=== PATIENT | male | born 1930 | race Caucasian/White ===

== ENCOUNTER 2017-05-18 00:53 | Inpatient (IN) ==
[2017-05-18] MEDS ORDERED: TYLENOL PO PRN (03:32)
[2017-05-18] MEDS ORDERED: ZOFRAN IV PRN (03:32)
[2017-05-18] MEDS: NS 1,000 ML IV SCH (04:33)
[2017-05-18] MEDS: ROCEPHIN 1 GM/NS 1 GM/50 ML IVPB IV SCH (04:34)
[2017-05-18 05:01] LABS: MANUAL DIFF NEEDED? NO
[2017-05-18 05:05] LABS: EOS# 0.05 X1000 (0.0-0.7); HEMATOCRIT 35.6 % (42.0-52.0); HEMOGLOBIN 12.4 g/dL (14.0-18.0); LYMPH# 0.42 X1000 (1.2-3.4); LYMPH% 8.4 % (20.5-51.1); MCH 31.6 PG (27-31); MCHC 34.8 g/dL (33-37); MCV 90.6 FL (81-99); MONO# 0.41 X1000 (0.11-0.59); MONO% 8.2 % (1.7-9.3); NEUT% 82.4 % (42.2-75.2); PLT 159 X1000 (130-400); RBC 3.93 XMIL (4.7-6.1)
[2017-05-18 05:15] LABS: INR 1.96; PROTIME 21.5 Seconds (9.2-11.7)
[2017-05-18 05:19] LABS: HEMOGLOBIN A1C 5.1 % (4.8-6.0)
[2017-05-18 05:28] LABS: AGAP 13; ALBUMIN 3.9 g/dL (3.5-5.0); ALKALINE PHOSPHATASE 101 U/L (32-122); BUN 12 mg/dL (8-22); CALCIUM 9.4 mg/dL (8.8-10.2); CHLORIDE 100 mmol/L (98-107); COSMO 272; GOT 13 U/L (10-34); GPT 7 U/L (10-44); SODIUM 136 mmol/L (136-145); TCO2 23 mmol/L (25-35); TOTAL PROTEIN 6.3 g/dL (6.3-8.3)
[2017-05-18] MEDS: DOXYCYCLINE 100 MG in NS 250 ML IV SCH ×2 (05:37→16:56)
[2017-05-18] MEDS: HUMALOG SUBQ SCH ×4 (06:59→21:07)
--- NOTE | 2017-05-18 09:14 | Diag Imaging Result Doc PS360 ---
CHEST-2 VIEWS - 05/18/2017 INDICATION: sent here for pneumonia TECHNIQUE: COMPARISON: None FINDINGS: Lung volumes are low with some patchy atelectasis in the bases. No suspicious infiltrates. Heart size and pulmonary vascularity is normal. No pneumothorax or pleural effusion. No compression fractures in the spine. IMPRESSION: Low lung volumes with patchy atelectasis in the lung bases but no definite acute disease. Electronically signed by Song Chapa 05/18/2017 9:11 AM
[2017-05-18] MEDS: CASODEX PO SCH (10:13)
[2017-05-18] MEDS: LIPITOR PO SCH (10:14)
[2017-05-18] MEDS: PATIENT'S OWN MED PO SCH (10:14)
[2017-05-18] MEDS: PROTONIX PO SCH (10:15)
[2017-05-18] MEDS: PROSCAR PO SCH (10:15)
[2017-05-18] MEDS: ZYRTEC PO SCH (10:15)
--- NOTE | 2017-05-18 12:31 | HISTORY AND PHYSICAL ---
FAMILY CARE PROVIDER: Dr. Gisselle Lloyd. PASTE THINNER: Dr. Jones. CHIEF COMPLAINT: Weakness over the past 5-7 days. HISTORY OF PRESENT ILLNESS: Mr. Cesar is an 87-year-old male who is known to have early stage dementia, hypertension, hyperlipidemia, apparent early stage prostate cancer. He has had TIAs and he is on chronic Coumadin anticoagulation according to the son related to the ministrokes. He presented around 10 p.m. last night to [facility] and was worked up. Apparently, the ER provider noted a retrocardiac infiltrate on a portable chest x-ray. He was transferred to [facility] for further treatment. PAST MEDICAL HISTORY: See HPI. PREVIOUS SURGICAL HISTORY: 1. Appendectomy. 2. Tonsillectomy. SOCIAL HISTORY: No tobacco, alcohol or illicit drug use or abuse. Lives at home with his son. [id number] just recently on the of this month. FAMILY HISTORY: Son states there are no chronic health issues in himself or his father's parents he is aware of ALLERGIES: No known drug allergies. HOME MEDICATIONS: 1. Coumadin 3 mg p.o. at bedtime Saturday, Saturday, Saturday. Coumadin 4 mg Saturday, Saturday, , Saturday at bedtime. 2. Zyrtec 1 tablet p.o. daily. 3. Finasteride 5 mg p.o. daily, 4. Bicalutamide 50 mg p.o. daily. 5. Bactrim DS 1 p.o. b.i.d. 6. Lipitor 10 mg p.o. daily. 7. Vitamin K 100 mcg p.o. daily. 8. Lopid 600 mg p.o. b.i.d. 9. Protonix 40 mg p.o. daily. 10. Naproxen 375 mg p.o. b.i.d. p.r.n. REVIEW OF SYSTEMS: Fourteen point review of systems conducted with the patient and son. He denies complaint other than mild weakness, a recent fall 7 days ago related to tripping over a rug. No loss of consciousness. A skin abrasion or skin tear to his left upper arm that is roughly 7 cm in length and 3-4 cm in width, and a mild cough. Other pertinent positives for admission are listed above in the HPI. All other systems reviewed and found to be negative. PHYSICAL EXAMINATION: VITAL SIGNS: Temperature 99.1 degrees, pulse 102, respirations 20, blood pressure 144/84, oxygen saturation 97% on room air. GENERAL: Very hard of hearing 87-year-old male denies complaint at this time. Son at bedside. He is oriented to person, disoriented to time. He is aware that he is in the hospital, is unsure which hospital but is in no acute distress. HEENT: Head is atraumatic, normocephalic. Pupils equal, round, reactive to light. Extraocular eye movement intact. Sclerae is anicteric. Conjunctivae is pink. Oral mucosa is moist. NECK: Supple. No JVD. No thyromegaly. Trachea is midline. CARDIAC: S1-S2 appreciated. No murmurs, gallops, rubs. Regular rhythm. LUNGS: Clear to auscultation bilaterally. No rhonchi, wheezes, rales. Symmetrical rise and fall with respirations. ABDOMEN: Soft, nondistended, nontender. Bowel sounds present in all 4 quadrants. Normoactive. No pulsatile mass. No organomegaly. EXTREMITIES: No clubbing, cyanosis, or edema. 2+ pedal pulses. NEUROLOGICAL: Awake and alert, oriented to person. He is aware he is in the hospital, does not know which hospital, disoriented to time. He is very hard of hearing. Otherwise, cranial nerves 2-12 appear to be grossly intact. SKIN: Warm and dry. A 3-4 cm in width x roughly 7 cm long skin tear noted to the left upper extremity with an area of erythema just below it. GENITOURINARY: The patient voids, otherwise deferred. DIAGNOSTIC DATA: All repeat laboratory data is pending at this time since he has been transferred as well as imaging. LABORATORY RESULTS: From [facility]: WBC 5.8, hemoglobin 12.6, hematocrit 35.9, platelet count 169,000. Sodium 135, potassium 4.1, chloride 97, carbon dioxide 22, BUN 12, creatinine 1.2, glucose 122. Urine was unremarkable. Chest x-ray was interpreted as a retrocardiac infiltrate. EKG, in normal sinus rhythm. ASSESSMENT: 1. Acute bacterial pneumonia, community acquired. We will treat with doxycycline IV q.12 hours 100 mg and Rocephin 1 g IV q.24 hours. We will re-evaluate a two-view chest x-ray when available. 2. Left upper extremity skin tear with possible cellulitis. Please see antibiotic selection above. We will consult Wound Care. 3. Hyperlipidemia. Continue statin. 4. Diabetes mellitus type 2. Hold oral antihyperglycemic. Check hemoglobin A1c. Start sliding scale insulin with fingerstick blood sugar. 5. Early stages of dementia, aware. 6. Chronic Coumadin anticoagulation presumably for a history of TIAs but unsure. Patient has both Coumadin and vitamin K ordered. No INR on was available from previous laboratory data. We will order both. This is pending. INR will need to be re-evaluated in the a.m. The patient had a CT of his head at the other facility which was negative for bleed. Further recommendations per patient clinical course. Dictated by JOHNATHON Martin for Jaspreet Tan MD cc: MD Barney Belle MD Harley C. Bailey, CRNP Lloyd James, MD
[2017-05-18] MEDS: COUMADIN PO SCH (20:03)
[2017-05-19] MEDS: ROCEPHIN 1 GM/NS 1 GM/50 ML IVPB IV SCH (04:08)
[2017-05-19] MEDS: DOXYCYCLINE 100 MG in NS 250 ML IV SCH ×2 (05:07→17:32)
[2017-05-19] MEDS: NS 1,000 ML IV SCH (06:20)
[2017-05-19] MEDS: HUMALOG SUBQ SCH ×5 (06:21→21:18)
[2017-05-19 06:32] LABS: MANUAL DIFF NEEDED? NO
[2017-05-19 06:36] LABS: BASO% 0.2 % (0.0-0.8); EOS# 0.01 X1000 (0.0-0.7); EOS% 0.2 % (0.0-10.0); HEMATOCRIT 37.5 % (42.0-52.0); HEMOGLOBIN 13.3 g/dL (14.0-18.0); IMM GRAN# 0.02 X1000 (0.0-0.04); IMM GRAN% 0.4 % (0.0-0.5); LYMPH# 0.44 X1000 (1.2-3.4); LYMPH% 7.8 % (20.5-51.1); MCH 31.4 PG (27-31); MCHC 35.5 g/dL (33-37); MCV 88.7 FL (81-99); MONO# 0.54 X1000 (0.11-0.59); MONO% 9.6 % (1.7-9.3); MPV 9.9 FL (7.4-10.4); NEUT% 81.8 % (42.2-75.2); PLT 159 X1000 (130-400); RBC 4.23 XMIL (4.7-6.1)
[2017-05-19 06:45] LABS: INR 1.73; PROTIME 18.8 Seconds (9.2-11.7)
[2017-05-19 06:48] LABS: AGAP 12; BUN 11 mg/dL (8-22); CALCIUM 8.9 mg/dL (8.8-10.2); CHLORIDE 97 mmol/L (98-107); COSMO 265; POTASSIUM 3.9 mmol/L (3.5-5.1); SODIUM 132 mmol/L (136-145); TCO2 23 mmol/L (25-35)
[2017-05-19] MEDS: PROTONIX PO SCH (08:56)
[2017-05-19] MEDS: LIPITOR PO SCH (08:56)
[2017-05-19] MEDS: ZYRTEC PO SCH (08:56)
[2017-05-19] MEDS: PROSCAR PO SCH (08:57)
[2017-05-19] MEDS: CASODEX PO SCH (08:57)
[2017-05-19] MEDS: COREG PO SCH ×2 (10:56→20:57)
[2017-05-19] MEDS: PATIENT'S OWN MED PO SCH (10:58)
--- NOTE | 2017-05-19 17:15 | PROGRESS NOTE ---
DATE: 05/19/2017 SUBJECTIVE: This patient states that he is feeling much better, has no specific complaints today, no acute events overnight. OBJECTIVE: Vital signs: Temperature 98 degrees, pulse 85, respiratory rate 16, blood pressure 148/73, oxygen saturation 95% on 3 L of nasal cannula. HEENT: Head normocephalic. No trauma. PERRLA. Neck: Supple. No JVD. No masses. Central trachea. Chest: Clear to auscultation. No wheezing. No rales. Abdomen: Soft, nontender, nondistended. No hepatosplenomegaly. Extremities: No clubbing, cyanosis, or edema. Neurological: The patient is alert. He is oriented to person. He knows that he is in the hospital. He does not know which one. He is not oriented in time, he is hard of hearing. Skin: He has a 4 x 17 cm long skin tear noted to the left upper extremity with mild erythema around it. Genitourinary: Deferred. LABORATORY: WBC 5.6, hemoglobin 13.3, hematocrit 37.5, platelets 459,000. Sodium 132, potassium 3.9, chloride 97, bicarbonate 23, BUN 11, creatinine 0.9, glucose 109, calcium 8.9. ASSESSMENT AND PLAN: 1. Community-acquired pneumonia. Continue with the same management, this patient is feeling better. 2. Left upper extremity skin tear with possible cellulitis. Continue with antibiotics. He is not complaining of pain at this moment. Continue with wound care. 3. Hyperlipidemia. Continue with statins. 4. Type 2 diabetes. Continue with sliding scale insulin and pattern blood sugar. 5. Possible dementia. I do not have any family members at the bedside to corroborate this information. 6. This patient is on chronic Coumadin anticoagulation, I am not quite sure why and he does not know why he is on blood thinners. Also he has been getting vitamin K at the same time. I will stop this one. I will try to communicate with the son or any family member today, but he does not remember the phone numbers and we do not have any in our data. 7. Physical deconditioning. I will consult Physical Therapy. cc: MD Jaspreet Mason MD
[2017-05-19] MEDS: COUMADIN PO SCH (20:57)
[2017-05-20] MEDS: ROCEPHIN 1 GM/NS 1 GM/50 ML IVPB IV SCH (04:44)
[2017-05-20] MEDS: DOXYCYCLINE 100 MG in NS 250 ML IV SCH ×2 (05:08→17:30)
[2017-05-20] MEDS: HUMALOG SUBQ SCH ×4 (06:15→21:26)
[2017-05-20 06:55] LABS: MANUAL DIFF NEEDED? NO
[2017-05-20 06:57] LABS: EOS# 0.07 X1000 (0.0-0.7); EOS% 1.3 % (0.0-10.0); HEMATOCRIT 38.4 % (42.0-52.0); HEMOGLOBIN 13.4 g/dL (14.0-18.0); IMM GRAN# 0.02 X1000 (0.0-0.04); IMM GRAN% 0.4 % (0.0-0.5); LYMPH# 0.75 X1000 (1.2-3.4); MCH 30.9 PG (27-31); MCHC 34.9 g/dL (33-37); MCV 88.5 FL (81-99); MONO# 0.65 X1000 (0.11-0.59); MONO% 12.1 % (1.7-9.3); MPV 9.9 FL (7.4-10.4); NEUT% 72.2 % (42.2-75.2); PLT 174 X1000 (130-400); RBC 4.34 XMIL (4.7-6.1)
[2017-05-20 07:16] LABS: INR 2.19; PROTIME 24.2 Seconds (9.2-11.7)
[2017-05-20 07:26] LABS: AGAP 11; BUN 17 mg/dL (8-22); CALCIUM 8.9 mg/dL (8.8-10.2); CHLORIDE 99 mmol/L (98-107); COSMO 274; POTASSIUM 3.6 mmol/L (3.5-5.1); SODIUM 136 mmol/L (136-145); TCO2 26 mmol/L (25-35)
[2017-05-20] MEDS: PROSCAR PO SCH (09:26)
[2017-05-20] MEDS: COREG PO SCH ×2 (09:26→21:26)
[2017-05-20] MEDS: PROTONIX PO SCH (09:26)
[2017-05-20] MEDS: CASODEX PO SCH (09:26)
[2017-05-20] MEDS: LIPITOR PO SCH (09:26)
[2017-05-20] MEDS: ZYRTEC PO SCH (09:28)
--- NOTE | 2017-05-20 14:34 | PROGRESS NOTE ---
DATE: 05/20/2017 The patient is resting comfortably in bed. He has no complaints. He states that he got up and walked with physical therapy this morning. OBJECTIVE: Vital Signs: Temperature 97.2 degrees, blood pressure 132/77, heart rate 85 respirations 14, O2 saturation is 97% on 2 L nasal cannula. General: This is an elderly male, lying in bed, in no acute distress. Head: Normocephalic, atraumatic. Heart: S1, S2. Normal. Regular rate and rhythm. Lungs: Clear to auscultation bilaterally. No wheezing, no rales. No rhonchi. Abdomen: Positive bowel sounds. Soft, nontender, nondistended. Extremities: No edema. No cyanosis. No calf tenderness. Neurologic: The patient is awake and alert with periods of confusion. LABORATORY DATA: White blood cell count 5.3, hemoglobin 13, hematocrit 38, platelets 174,000, INR 2.1. Sodium 136, potassium 3.6, chloride 99, CO2 26, BUN 17, creatinine 1, glucose 100, calcium 8.9. ASSESSMENT AND PLAN: 1. Pneumonia. Continue on the current antibiotic regimen. We will check a PA and lateral chest x-ray tomorrow. 2. Chronic anticoagulation. The patient's INR is therapeutic. Continue on Coumadin. 3. Hyponatremia. Resolved. 4. Left upper extremity cellulitis. Continue on IV antibiotic therapy. 5. Diabetes mellitus type 2. Continue on sliding scale insulin. 6. I have suspected dementia., aware. 7. Deconditioning. I will continue with physical therapy. DISPOSITION: The patient may require rehab placement. marketing services rep has been consulted to assist with this. cc: Clementina Mayes MD [facility]
[2017-05-20] MEDS ORDERED: COUMADIN PO SCH (21:00)
[2017-05-21] MEDS: ROCEPHIN 1 GM/NS 1 GM/50 ML IVPB IV SCH (03:58)
[2017-05-21] MEDS: DOXYCYCLINE 100 MG in NS 250 ML IV SCH (05:40)
[2017-05-21] MEDS: HUMALOG SUBQ SCH ×2 (06:02→11:31)
[2017-05-21 06:48] LABS: HEMATOCRIT 36.6 % (42.0-52.0); HEMOGLOBIN 12.8 g/dL (14.0-18.0); MCH 30.9 PG (27-31); MCV 88.4 FL (81-99); MPV 9.8 FL (7.4-10.4); RBC 4.14 XMIL (4.7-6.1)
[2017-05-21 07:08] LABS: AGAP 12; BUN 20 mg/dL (8-22); CALCIUM 8.6 mg/dL (8.8-10.2); CHLORIDE 101 mmol/L (98-107); COSMO 280; POTASSIUM 3.5 mmol/L (3.5-5.1); SODIUM 139 mmol/L (136-145); TCO2 26 mmol/L (25-35)
[2017-05-21 07:24] LABS: INR 2.61; PROTIME 29.1 Seconds (9.2-11.7)
--- NOTE | 2017-05-21 08:45 | Diag Imaging Result Doc PS360 ---
CHEST-2 VIEWS - 05/21/2017 INDICATION: hypoxia TECHNIQUE: COMPARISON: 05/18/2017 FINDINGS: There is improvement in the hazy bibasilar atelectasis or infiltrates. The lungs are normally expanded and clear. Heart size and mediastinal contours are normal. No pneumothorax or pleural effusion. IMPRESSION: Negative exam. Electronically signed by Song Chapa 05/21/2017 8:43 AM
[2017-05-21] MEDS: LIPITOR PO SCH (10:07)
[2017-05-21] MEDS: COREG PO SCH (10:07)
[2017-05-21] MEDS: PROTONIX PO SCH (10:07)
[2017-05-21] MEDS: PROSCAR PO SCH (10:07)
[2017-05-21] MEDS: CASODEX PO SCH (10:07)
[2017-05-21] MEDS: ZYRTEC PO SCH (10:07)
[2017-05-21 14:09] VITALS: BP 95/55
--- NOTE | 2017-05-21 14:13 | DISCHARGE SUMMARY ---
ADMISSION DATE: 05/18/2017 DISCHARGE DATE: 05/21/2017 CONSULTATIONS: None. PERTINENT PROCEDURES: Chest x-ray showed low lung volumes with patchy atelectasis in the lung bases, but no definite acute disease. DISCHARGE DIAGNOSES: 1. Pneumonia 2. Chronic anticoagulation 3. Hyponatremia 4. Left upper extremity skin tear with cellulitis 5. Diabetes mellitus type 2 6. Suspected dementia 7. Recurrent TIA HOSPITAL COURSE: Mr. Cesar is an 87-year-old male, who is known to have early stage dementia, hypertension, hyperlipidemia, apparent early stage prostate cancer. He has had TIAs, and is on chronic Coumadin anticoagulation according to his son related to his mini- stroke. He presented to [facility] on 05/18/2017 at 10 p.m. where the ER provider noted a retrocardiac infiltrate on portable chest x-ray. He was transferred to [facility] for further treatment. Initial laboratory data from [facility] with a white count of 5.8, hemoglobin 12, hematocrit of 35, platelet count 169. Sodium 139, potassium 4.1. BUN 12, creatinine 1.2. His urine was unremarkable. His chest x-ray was interpreted as a retrocardiac infiltrate. EKG was normal sinus rhythm. He is admitted to our facility for community-acquired pneumonia. He was started on IV antibiotics, as well as a left upper extremity skin tear with possible cellulitis with a wound care consult. The patient was also noted to be on chronic Coumadin anticoagulation presumably for history of TIA. According to his initial history he was on both Coumadin and vitamin K. Head CT from [facility] was negative for any bleed. The patient was noted to have some physical deconditioning. Physical therapy was consulted as well as mental health social worker for rehab placement. The patient was continued on his Coumadin therapy. His INR was therapeutic. His vitamin K was discontinued. At time of discharge, temperature is 97.2, heart rate 74, respirations 15, blood pressure 92/63, O2 is 97% on 2 L nasal cannula. DISCHARGE DIET: Regular with Ensure t.i.d. DISCHARGE MEDICATIONS: As per Dr. Mayes. 1. Augmentin 1 each p.o. b.i.d. for 5 days. 2. Lipitor 10 mg p.o. at bedtime. 3. Bicalutamide 50 mg p.o. daily. 4. Zyrtec 10 mg p.o. daily. 5. Finasteride 5 mg p.o. daily. 6. Gemfibrozil 60 mg p.o. daily. 7. Protonix 40 mg p.o. daily. 8. Coumadin 3 mg p.o. Saturday, Saturday, Saturday at 2100. 9. Coumadin 4 mg Saturday, Saturday, , Saturday at 2100. 10. Vitamin K 100 mcg oral daily. FOLLOWUP: Mr. Cesar is being discharged to [facility] in [place] for physical therapy. He will continue his full course of antibiotics as well as wound care to his left upper extremity, as well as patterned blood sugars and he can follow up with his primary care physician, Gisselle Lloyd after rehab. The patient can return to the ED for any worsening of symptoms. DISCHARGE TIME: 30 minutes. Dictated by JOHNATHON Duncan for Clementina Mayes MD cc: Clementina Mayes MD MTDD
== END 2017-05-21 14:46 ==
LOC: OBSVTOIN 00:53 → DIRADM 00:53 → INTOOBSV 00:53 → SUATTDRO 00:53 → MERGE 00:53 → 3N 01:38
PROVIDERS: ATTEND Internal Medicine